=== PATIENT | female | born 1975 | race Caucasian/White ===

== ENCOUNTER 2018-05-06 02:47 | Emergency (ER) | payer OTHER, MEDICAID, SELFPAY ==
[2018-05-06 02:53] VITALS: BP 127/79; PULSE 107; RESP 14; TEMP 36.6; O2SAT 0
[2018-05-06 03:10] LABS: Appearance Urine UA SL CLOUDY; Bilirubin Urine UA NEGATIVE (NEGATIVE); Color Urine UA YELLOW; Glucose Urine UA NEGATIVE (Normal); Ketones Urine UA NEGATIVE (NEGATIVE); Leukocyte Esterase Urine UA 2+ (NEGATIVE); Nitrite Urine UA Negative (Negative); Occult Blood Urine UA TRACE-LYSED (Negative); Protein Urine UA 1+ (Negative); Specific Gravity Urine UA 1.025 (1.000-1.035); Urobilinogen Urine UA 0.2 E.U./dL (0.2)
[2018-05-06 03:19] LABS: RBC Urine 1-5/HPF (0-5/HPF)
[2018-05-06 03:20] LABS: Bacteria Urine Many (>30); Culture Indicated Urine Specimen Cultured; Squamous Epithelial Cell Urine 1-5 /HPF; WBC Urine 30-100/HPF (0-5/HPF)
--- NOTE | 2018-05-06 04:40 | ED.FEMALEGU ---
HPI - Female Genitourinary General Chief complaint: Urogenital-Female Stated complaint: hurts to pee, constantly peeing Time Seen by Provider: 05/06/18 04:40 Source: patient Mode of arrival: ambulatory Limitations: no limitations History of Present Illness Complaint: dysuria Onset (ago): hour(s) Location: perineum Severity: moderate Quality: Burning Relieving factors: none Exacerbating factors: urination Urinary symptoms: Dysuria and Frequency Vaginal discharge: other ( No) Patient : No Associated symptoms: denies other symptoms Related Data Previous Rx's Medication Instructions Recorded amoxicillin 875 mg-potassium 1 tab PO Q12H #14 tab 02/13/18 clavulanate 125 mg tablet ibuprofen 800 mg tablet 800 mg PO TIDP PRN #30 tab 02/13/18 sulfamethoxazole-trimethoprim 1 tab PO BID #14 tab 05/06/18 [Bactrim DS] Allergies Allergy/AdvReac Type Severity Reaction Status Date / Time hydrocodone [From VICODIN] Allergy Unknown Verified 02/13/18 13:10 Review of Systems Review of Systems All systems reviewed & are unremarkable except as noted in HPI and below Constitutional Denies chills, Denies fever(s), Denies lethargy and Denies weakness Eyes Denies change in vision, Denies eye discharge, Denies irritation and Denies loss of vision ENT Ears, Nose, Mouth, and Throat: Denies change in voice, Denies neck pain and Denies sore throat Cardiovascular Denies chest pain, Denies irregular heart rhythm, Denies lightheadedness, Denies palpitations, Denies dyspnea, Denies dyspnea on exertion and Denies orthopnea Respiratory Denies cough, Denies dyspnea, Denies dyspnea on exertion and Denies wheezing Gastrointestinal Gastrointestinal: Denies abdominal pain, Denies change in bowel habits, Denies diarrhea, Denies nausea and Denies vomiting Genitourinary Denies hematuria, Reports dysuria, Denies flank pain, Denies urinary incontinence and Reports urinary urgency Musculoskeletal Denies neck pain Integumentary/Breasts Denies pruritus, Denies erythema, Denies rash and Denies wounds Neurologic Denies confusion, Denies loss of vision and Denies weakness Psychiatric Denies anxiety, Denies confusion, Denies depression, Denies homicidal ideation and Denies suicidal ideation Endocrine Denies palpitations Hematologic/Lymphatic Denies easy bruising Allergic/Immunologic Denies wheezing [facility] Medical History ADHD (attention deficit hyperactivity disorder) (Chronic) Anxiety (Chronic) Autism (Chronic) Carpal tunnel syndrome (Chronic ~2006) Chronic back pain (Chronic ~1997) Heavy menstrual period (Chronic ~1987) Irregular menstrual cycle (Chronic ~1987) Painful menstrual periods (Chronic ~1987) Recurrent sinusitis (Chronic Unknown) Restless leg syndrome (Chronic) Substance abuse (Chronic) Acne (Resolved) Chickenpox (Resolved Unknown) Surgical History History of facial surgery (Resolved 07/2017) Hx of appendectomy (Resolved ~1984) Hx of tubal ligation (Resolved 2010) Family History Father Mental health problem Adopted child Alcoholic Mother Mental health problem Anxiety Fibromyalgia Grandfather Alcoholic Depression Mental health problem Grandmother Mental health problem Anxiety Depression Grandfather Stroke Myocardial infarction Mental health problem Alcoholic Adopted child Child molesting Grandmother Mental health problem Neuroticism Social History Smoking Status: Current every day smoker alcohol intake: never substance use type: does not use Exam Initial Vital Signs Initial Vital Signs: Vital Signs Temperature 97.9 F 05/06/18 02:53 Pulse Rate 107 H 05/06/18 02:53 Respiratory Rate 14 05/06/18 02:53 Blood Pressure 127/79 05/06/18 02:53 Pulse Oximetry 0 L 05/06/18 02:53 Const General: cooperative and well developed Nutritional Appearance: well nourished Orientation: alert, awake, oriented x3 and not confused [facility] Head: normocephalic and atraumatic Ears: external ears normal Nose: external nose normal and No nasal discharge Face and sinus: face symmetric and No dry mucous membranes Mouth: oral mucosae normal and moist mucous membranes Eyes General: appearance normal, both eyes and all related structures Eyelids: eyelids normal Conjunctivae: conjunctivae normal Sclera: sclerae normal Pupils: PERRL EOM: EOM intact bilaterally Neck Neck: normal visual inspection, trachea midline, No lymphadenopathy, No midline deformity and No JVD Lymphatic: No lymphedema Chest Chest: normal inspection of the chest Resp Effort & Inspection: normal respiratory effort, able to speak in complete sentences, no respiratory distress and no use of accessory muscles Auscultation: clear to auscultation bilaterally, no rales, no rhonchi and no wheezes Cardio Rate: regular rate Rhythm: regular rhythm Heart Sounds: no click, no gallops, no murmurs and no rubs Pulses: normal peripheral pulses GI Inspection: non-distended Palpation: soft, no hepatosplenomegaly, No guarding, No pulsatile mass and No tender Auscultation: normal bowel sounds Back/Spine/Pelvis Back: No CVA tenderness Cervical Spine: cervical ROM normal and No pain with cervical ROM Thoracic/Lumbar Spine: thoracic and lumbar spine normal to inspection Skin General: no rashes or lesions noted, No jaundice and No petechiae Neuro General: alert, oriented x3, gait normal and no focal motor deficits Speech: speech normal Extrem General: full ROM, no clubbing, cyanosis or edema, no pedal edema and no calf tenderness Psych Appearance: well kempt Mental Status: mental status grossly normal Attitude: cooperative Thought Content: normal and suicidality Judgment: judgment good Course Hospital Course: Patient was worked up and found to have a urinary tract infection. She was started on antibiotics and given a prescription for the same. The usual indications for return were discussed. Orders Ordered: Discontinued Medications Phenazopyridine HCl (Pyridium) 200 mg PO NOW ONE Stop: 05/06/18 05:07 Last Admin: 05/06/18 06:08 Dose: 200 mg Trimethoprim/Sulfamethoxazole (Bactrim Ds) 1 tab PO NOW ONE Stop: 05/06/18 05:07 Last Admin: 05/06/18 06:10 Dose: 1 tab Vital Signs - 8 hr 05/06/18 02:53 Temperature 97.9 F Pulse Rate 107 H Respiratory Rate 14 Blood Pressure 127/79 Pulse Oximetry 0 L MDM - Female Genitourinary Medical Records Attestation: I reviewed the patient's medical records. Lab Data Attestation: I reviewed the patient's lab results. Lab Results 05/06/18 Range/Units 03:00 Urine Color Yellow Urine Appearance Sl cloudy Urine pH 6.0 (4.5-8.0) Ur Specific [place] 1.025 (1.000-1.035) Urine Protein 1+ H (Negative) Urine Glucose (UA) Negative (Normal) g/dL Urine Ketones Negative (NEGATIVE) Urine Occult Blood Trace-lysed (Negative) Urine Nitrate Negative (Negative) Urine Bilirubin Negative (NEGATIVE) Urine Urobilinogen 0.2 (0.2) E.U./dL Ur Leukocyte Esterase 2+ H (NEGATIVE) Urine RBC 1-5/hpf (0-5/HPF) Urine WBC 30-100/hpf H (0-5/HPF) Ur Squamous Epith Cells 1-5 /hpf Urine Bacteria Many (>30) H (None) Ur Culture Indicated? Specimen cultured Micro UA Comment Not Reportable Discharge Plan Departure Patient Disposition: Home Clinical Impression: Urinary tract infection Discharge Date/Time: 05/06/18 06:14 Interventions: ED Discharge Assessment Last Done: 05/06/18 06:13 Instructions: DI for Urinary Tract Infection (UTI) Prescriptions: New sulfamethoxazole-trimethoprim [Bactrim DS] 800-160 mg tablet 1 tab PO BID Qty: 14 RF: 0 No Action amoxicillin-pot clavulanate 875-125 mg tablet 1 tab PO Q12H Qty: 14 RF: 0 ibuprofen 800 mg tablet 800 mg PO TIDP PRN (Reason: fever or pain) Qty: 30 RF: 0 Referrals: [facility] [Provider Group]
[2018-05-06 06:05] VITALS: BP 117/82; PULSE 91; O2SAT 98
[2018-05-06] MEDS: PHENAZOPYRIDINE 100 MG TABLET 200 MG PO (06:08)
[2018-05-06] MEDS: SULFA/TRIMETH 800/160 (DS) TABLET 1 TAB PO (06:10)
== END 2018-05-06 06:14 | disposition home or self-care (01) ==
PROVIDERS: Emergency Provider Emergency Medicine
DX: N39.0 Urinary tract infection, site not specified (principal)
CPT/HCPCS: 81001; 87077; 87086; 99282; 99283

== ENCOUNTER 2019-05-03 22:59 | Emergency (ER) | payer OTHER, MEDICAID, SELFPAY ==
[2019-05-03 23:02] VITALS: BP 140/99; PULSE 90; RESP 14; TEMP 36.7; O2SAT 95; BMI 23.3
--- NOTE | 2019-05-03 23:15 | ED.SKABFB ---
HPI - Skin/Abscess/Foreign Bdy General Chief complaint: Skin/Abscess/Foreign Body Stated complaint: FACE PAIN Time Seen by Provider: 05/03/19 23:05 Source: patient and family Mode of arrival: ambulatory Limitations: no limitations History of Present Illness HPI narrative: 44-year-old female former smoker presents with significant other and a chief complaint of left-sided facial pain with occasional intraoral drainage of foul tasting material. She states she has had this happen on occasion since she had a surgery to fix ?broken bones in my face ?a few years ago in [place]. She denies any systemic findings such as fever, shaking chills nor nausea or vomiting. She denies any facial swelling. She denies any tongue, lip or throat swelling or difficulty swallowing. On a side note the patient states that she on occasion gets numbness and tingling in her right arm in all of her fingers, most frequently after a long day of work, stating her symptoms improve after rest. Onset (ago): hour(s) Tetanus up to date: yes Location: face Severity: mild Quality: aching Pain Consistency: constant Relieving factors: none Exacerbating factors: none Context: none Associated symptoms: denies other symptoms Treatments prior to arrival: none Related Data Previous Rx's Medication Instructions Recorded ibuprofen 800 mg tablet 800 mg PO TIDP PRN #30 tab 02/13/18 prednisone 10 mg tablets in a dose 10 mg PO PER PKG DIR #21 each 05/26/18 pack amoxicillin-pot clavulanate 1 tab PO BID #20 tab 05/03/19 [Augmentin] ketorolac 10 mg PO Q6H PRN #14 tab 05/03/19 Allergies Allergy/AdvReac Type Severity Reaction Status Date / Time hydrocodone [From VICODIN] Allergy Unknown Verified 05/26/18 10:38 Review of Systems Constitutional Constitutional: Denies chills, Denies fatigue, Denies fever(s), Denies frequent falls, Denies lethargy and Denies weakness Eyes Eyes: Denies change in vision, Denies eye discharge, Denies irritation and Denies loss of vision ENT Ears, Nose, Mouth, and Throat: Denies change in voice, Denies dizziness, Reports facial pain, Denies neck pain, Denies sore throat and Denies throat swelling Cardiovascular Cardiovascular: Denies chest pain, Denies irregular heart rhythm, Denies lightheadedness, Denies palpitations, Denies dyspnea, Denies dyspnea on exertion and Denies orthopnea Respiratory Respiratory: Denies cough, Denies dyspnea, Denies dyspnea on exertion and Denies wheezing Gastrointestinal Gastrointestinal: Denies abdominal pain, Denies change in bowel habits, Denies diarrhea, Denies nausea and Denies vomiting Genitourinary Genitourinary: Denies hematuria, Denies flank pain, Denies urinary incontinence and Denies urinary urgency Musculoskeletal Musculoskeletal: Denies back pain, Denies muscle weakness, Denies neck pain, Denies numbness and Denies tingling Integumentary/Breasts Skin/Breast: Denies pruritus, Denies erythema, Denies rash and Denies wounds Neurologic Neurologic: Denies behavioral changes, Denies confusion, Denies dizziness, Denies frequent falls, Denies loss of vision, Denies numbness, Denies tingling and Denies weakness Psychiatric Psychiatric: Denies anxiety, Denies behavioral changes, Denies confusion, Denies depression, Denies homicidal ideation and Denies suicidal ideation Endocrine Endocrine: Denies fatigue, Denies flushing and Denies palpitations Hematologic/Lymphatic Hematologic/Lymphatic: Denies easy bruising Allergic/Immunologic Allergic/Immunologic: Denies urticaria, Denies throat swelling and Denies wheezing [facility] Medical History Acne (Resolved) ADHD (attention deficit hyperactivity disorder) (Chronic) Anxiety (Chronic) Autism (Chronic) Carpal tunnel syndrome (Chronic ~2006) Chickenpox (Resolved Unknown) Chronic back pain (Chronic ~1997) Heavy menstrual period (Chronic ~1987) Irregular menstrual cycle (Chronic ~1987) Painful menstrual periods (Chronic ~1987) Recurrent sinusitis (Chronic Unknown) Restless leg syndrome (Chronic) Substance abuse (Chronic) Surgical History History of facial surgery (Resolved 07/2017) Hx of appendectomy (Resolved ~1984) Hx of tubal ligation (Resolved 2010) Family History Father Mental health problem Adopted child Alcoholic Mother Mental health problem Anxiety Fibromyalgia Grandfather Alcoholic Depression Mental health problem Grandmother Mental health problem Anxiety Depression Grandfather Stroke Myocardial infarction Mental health problem Alcoholic Adopted child Child molesting Grandmother Mental health problem Neuroticism Social History Smoking Status: Current every day smoker alcohol intake: never substance use type: does not use Family History Father Mental health problem Adopted child Alcoholic Mother Mental health problem Anxiety Fibromyalgia Grandfather Alcoholic Depression Mental health problem Grandmother Mental health problem Anxiety Depression Grandfather Stroke Myocardial infarction Mental health problem Alcoholic Adopted child Child molesting Grandmother Mental health problem Neuroticism Social History Smoking Status: Current every day smoker alcohol intake: never substance use type: does not use Exam Narrative Exam Narrative: GEN: 44-year-old female appears stated age AOx3 and in mild distress, GCS 15. EYES: Pupils are equal, round, and reactive to light and accommodation. Extraoccular muscles are intact bilaterally. There is no subconjunctival hemorrhage or exudate. ENT: No obvious facial swelling or redness. No intraoral abscess or swelling. Firm pressure over L zygoma does NOT result in drainage in the mouth. CHEST: Lungs are clear to auscultation bilaterally and free of wheezes, rales, or rhonchi. Heart rate is regular rhythm, there are no murmurs, clicks, rubs, or gallops. There is no chest wall tenderness. ABD: Abdomen is soft and nontender. There is no guarding or rebound. Bowel sounds are normal in all 4 quadrants. There is no mass or organomegaly. EXT: Full painless ROM of all extremities with no loss of sensation or strength. No numbness or tingling with tinel's or reverse phalen's SKIN: Warm, pink, and dry. No erythema or rash Initial Vital Signs Initial Vital Signs: Vital Signs Temperature 98.0 F 05/03/19 23:02 Pulse Rate 90 05/03/19 23:02 Respiratory Rate 14 05/03/19 23:02 Blood Pressure 140/99 H 05/03/19 23:02 Pulse Oximetry 95 05/03/19 23:02 Course Orders Ordered: Discontinued Medications Amoxicillin/Clavulanate Potassium (Augmentin 875-125 Mg) 1 tab PO NOW ONE Stop: 05/03/19 23:28 Last Admin: 05/03/19 23:32 Dose: 1 tab Documented by: KEV Ketorolac Tromethamine (Toradol) 15 mg IM NOW ONE Stop: 05/03/19 23:28 Last Admin: 05/03/19 23:32 Dose: 15 mg Documented by: KEV Vital Signs Vital signs: Vital Signs - 8 hr 05/03/19 23:02 Temperature 98.0 F Pulse Rate 90 Respiratory Rate 14 Blood Pressure 140/99 H Pulse Oximetry 95 MDM - Skin/Abscess/Foreign Bdy MDM Narrative Medical decision making narrative: Patient reports facial pain, the perception of swelling, and intraoral drainage occasionally (currently) since a facial surgery a few years ago. There is no obvious external manifestation of this, nor intraoral, or ongoing drainage. We discussed labs and imaging versus treatment with antibiotics. Patient refuses any significant evaluation at this point time, stating she usually does just fine on antibiotics. We discussed risks and benefits of this. She has been given return precautions and had questions answered to her apparent satisfaction Discharge Plan Departure Patient Disposition: Home Clinical Impression: Acute facial pain, Odontogenic infection of jaw Discharge Date/Time: 05/03/19 23:47 Instructions: DI for Wound Infection Activity Restrictions/Additional Instructions: *You have been diagnosed with [facial pain and possible infection of prior surgical site] *What to do: *Take medications as directed: Your prescriptions have been electronically transmitted to [facility] at your request *Follow up with your primary care provider in 2-3 days, call for an appointment. Let them know you were seen in the Emergency Department and that we ask that you be seen in follow up *Return to ER if you should have any new, worsening or concerning symptoms Prescriptions: New amoxicillin-pot clavulanate [Augmentin] 875-125 mg tablet 1 tab PO BID Qty: 20 RF: 0 ketorolac 10 mg tablet 10 mg PO Q6H PRN (Reason: pain) Qty: 14 RF: 0 No Action ibuprofen 800 mg tablet 800 mg PO TIDP PRN (Reason: fever or pain) Qty: 30 RF: 0 prednisone 10 mg tablets,dose pack 10 mg PO PER PKG DIR Qty: 21 RF: 0 Referrals: Shola Cristina DMD [Physician] - Abdirizak De Jesus MD [Physician] -
[2019-05-03] MEDS: AMOXICILLIN/CLAV 875/125 MG 1 TAB PO (23:32)
[2019-05-03] MEDS: KETOROLAC 60 MG/2 ML VIAL 15 MG IM (23:32)
== END 2019-05-03 23:47 | disposition home or self-care (01) ==
LOC: ED 23:41
PROVIDERS: Emergency Provider Emergency Medicine
DX: R51 Headache (principal); M27.2 Inflammatory conditions of jaws
CPT/HCPCS: 96372; 99282; 99283; J1885

== ENCOUNTER 2021-01-30 04:45 | Emergency (ER) | payer OTHER, MEDICAID, SELFPAY ==
[2021-01-30 04:59] VITALS: BP 145/93; PULSE 123; RESP 20; TEMP 36.9; O2SAT 99; BMI 23.3
--- NOTE | 2021-01-30 05:15 | ED.ANIMALBIT ---
HPI - Animal Bite General Chief Complaint: Animal Bite Stated Complaint: cat bite to right arm cat has had shots Time Seen by Provider: 01/30/21 05:15 Source: patient Mode of arrival: Ambulatory Limitations: no limitations History of Present Illness HPI narrative: Patient is a 45-year-old female who presents with cat bite to right arm. She said her friend's cat bit her arm about 7:00 p.m. last evening. He she says the cat has all of its shots she is unsure on her tetanus shot she has no fever or chills worried it needs antibiotics. complaint: animal bite Onset (ago): hour(s) Animal: cat Description of animal: household pet Mechanism: bite Location - Extremities: Right: arm Related Data Previous Rx's Medication Instructions Recorded ibuprofen 800 mg tablet 800 mg PO TIDP PRN #30 tab 02/13/18 prednisone 10 mg tablets in a dose 10 mg PO PER PKG DIR #21 each 05/26/18 pack amoxicillin-pot clavulanate 1 tab PO BID #20 tab 05/03/19 [Augmentin] ketorolac 10 mg PO Q6H PRN #14 tab 05/03/19 amoxicillin-pot clavulanate 1 tab PO Q12H #14 tab 01/30/21 [Augmentin] Allergies Allergy/AdvReac Type Severity Reaction Status Date / Time hydrocodone [From VICODIN] Allergy Unknown Verified 05/26/18 10:38 Review of Systems Review of Systems Narrative: GENERAL: Denies chills,fever HEENT: Denies throat pain RESPIRATORY: Denies dyspnea, cough, wheezing CARDIOVASCULAR: Denies chest pain, palpitations GASTROINTESTINAL: Denies nausea, vomiting MUSCULOSKELETAL: Denies extremity pain, injury SKIN: See HPI NEUROLOGIC: Denies weakness, dizziness, headache, numbness 8 point review of systems is negative except for those stated above and HPI Patient History Medical History (Updated 01/30/21 @ 05:19 by Carmel Llanes DO) Acne ADHD (attention deficit hyperactivity disorder) Anxiety Autism Carpal tunnel syndrome (~2006) Chickenpox (Unknown) Chronic back pain (~1997) Heavy menstrual period (~1987) Irregular menstrual cycle (~1987) Painful menstrual periods (~1987) Recurrent sinusitis (Unknown) Restless leg syndrome Substance abuse Surgical History History of facial surgery (07/2017) Hx of appendectomy (~1984) Hx of tubal ligation (2010) Family History Father Mental health problem Adopted child Alcoholic Mother Mental health problem Anxiety Fibromyalgia Grandfather Alcoholic Depression Mental health problem Grandmother Mental health problem Anxiety Depression Grandfather Stroke Myocardial infarction Mental health problem Alcoholic Adopted child Child molesting Grandmother Mental health problem Neuroticism Social History Smoking Status: Current every day smoker alcohol intake: never substance use type: does not use Smoking Status: Current every day smoker alcohol intake frequency: a few times a week Substance Use Type: marijuana Exam Initial Vital Signs Initial Vital Signs: Vital Signs Temperature 98.4 F 01/30/21 04:59 Pulse Rate 123 H 01/30/21 04:59 Respiratory Rate 20 01/30/21 04:59 Blood Pressure 145/93 H 01/30/21 04:59 Pulse Oximetry 99 01/30/21 04:59 GENERAL: Well-appearing, well-nourished and in no acute distress. CARDIOVASCULAR: peripheral pulses in tact, cap refill <2 sec RESPIRATORY: No respiratory distress, speaks in full sentences without difficulty EXTREMITIES: Normal range of motion, no clubbing or edema. Neurovascularly intact NEUROLOGICAL: Cranial nerves II through XII grossly intact. Normal gait and speech. SKIN: Multiple puncture wounds in right forearm mild erythema no streaking Course Orders Ordered: Discontinued Medications Amoxicillin/Clavulanate Potassium (Amoxicillin/Clav 875/125 Mg) 1 tab PO NOW ONE Stop: 01/30/21 05:26 Last Admin: 01/30/21 05:33 Dose: 1 tab Documented by: ALEISHA Diphtheria/Tetanus/Acell Pertussis (Tet,Diph,Pertuss(Acell),Vac/Pf 0.5 Ml Syringe) 0.5 ml IM .ONCE ONE Stop: 01/30/21 05:22 Last Admin: 01/30/21 05:34 Dose: Not Given Documented by: ALEISHA Vital Signs Vital signs: Vital Signs - 8 hr 01/30/21 04:59 01/30/21 05:37 Temperature 98.4 F Pulse Rate 123 H 100 H Respiratory Rate 20 16 Blood Pressure 145/93 H 140/71 Pulse Oximetry 99 100 Discharge Plan Departure Patient Disposition: Home Clinical Impression: Cat bite Instructions: DI for Cat Bite Activity Restrictions/Additional Instructions: *You have been diagnosed with will bite *What to do: Monitor arm for redness *Continue to take medications as directed Augment 875 mg twice a day for 7 days sent to [facility] in [place] *Follow up with your primary care provider in 2-3 days *Return to ER if you should have increasing redness, streaking, pain or any new, worsening or concerning symptoms Prescriptions: New amoxicillin-pot clavulanate [Augmentin] 875-125 mg tablet 1 tab PO Q12H Qty: 14 RF: 0 No Action ibuprofen 800 mg tablet 800 mg PO TIDP PRN (Reason: fever or pain) Qty: 30 RF: 0 prednisone 10 mg tablets,dose pack 10 mg PO PER PKG DIR Qty: 21 RF: 0 amoxicillin-pot clavulanate [Augmentin] 875-125 mg tablet 1 tab PO BID Qty: 20 RF: 0 ketorolac 10 mg tablet 10 mg PO Q6H PRN (Reason: pain) Qty: 14 RF: 0
[2021-01-30] MEDS: AMOXICILLIN/CLAV 875/125 MG 1 TAB PO (05:33)
--- NOTE | 2021-01-30 05:34 | PC.NURSE ---
Patient refused tetanus shot; states she got one within 5years from when she went to [facility] and needed surgery and states she got one then; Her partner and patient agree to double check that that's accurate and promise to go get a tetanus shot if it was not within that 5yr range
[2021-01-30 05:37] VITALS: BP 140/71; PULSE 100; RESP 16; O2SAT 100
== END 2021-01-30 05:37 | disposition home or self-care (01) ==
PROVIDERS: Emergency Provider Emergency Medicine
DX: S41.151A Open bite of right upper arm, initial encounter (principal); W55.01XA Bitten by cat, initial encounter
CPT/HCPCS: 99283

== ENCOUNTER 2022-02-07 11:31 | Emergency (ER) | payer OTHER, MEDICAID, SELFPAY ==
[2022-02-07 11:32] VITALS: BP 126/89; PULSE 98; RESP 16; TEMP 36.6; O2SAT 100; BMI 24.1
--- NOTE | 2022-02-07 12:24 | ED.EXTPRO ---
HPI - Extremity Problem <Gabriel Hawk PA-C - Last Filed: 02/07/22 19:35> General Chief complaint: Extremity Problem,Nontraumatic Stated complaint: Pain in right arm Time Seen by Provider: 02/07/22 12:06 Source: patient Mode of arrival: Ambulatory History of Present Illness HPI Narrative: Patient is a 46-year-old female who presents to the emergency department for evaluation right arm pain. Patient states she has been experiencing pain in her right upper extremity for the past 3 or 4 years, stating that she fractured the right elbow approximately 7 years ago. She explains that she frequently experiences decreased sensation in right upper extremity and pain with movement that often times causes her to miss work. Of note, she denies any recent trauma or injury to the area that could explain her symptoms. She denies fever, chills, chest pain, cough, shortness of breath, nausea, vomiting, diarrhea, constipation, abdominal pain, dysuria, hematuria, or any other concerning symptoms. No further concerns were voiced at this time. Related Data Previous Rx's Medication Instructions Recorded ibuprofen 800 mg tablet 800 mg PO TIDP PRN fever or pain 02/13/18 #30 tabs prednisone 10 mg tablets in a dose 10 mg PO PER PKG DIR #21 ea 05/26/18 pack amoxicillin 875 mg-potassium 1 tab PO BID #20 tabs 05/03/19 clavulanate 125 mg tablet (Augmentin) ketorolac 10 mg tablet 10 mg PO Q6H PRN pain #14 tabs 05/03/19 amoxicillin 875 mg-potassium 1 tab PO Q12H #14 tabs 01/30/21 clavulanate 125 mg tablet (Augmentin) gabapentin 300 mg capsule 300 mg PO BEDTIME #20 caps 02/07/22 Allergies Allergy/AdvReac Type Severity Reaction Status Date / Time hydrocodone [From VICODIN] Allergy Unknown Verified 02/07/22 11:38 acetaminophen [From Percocet] Allergy Verified 02/07/22 11:38 oxycodone [From Percocet] Allergy Verified 02/07/22 11:38 Review of Systems <Gabriel Hawk PA-C - Last Filed: 02/07/22 19:35> Review of Systems Narrative: GENERAL: Denies chills,fever HEENT: Denies throat pain RESPIRATORY: Denies dyspnea, cough, wheezing CARDIOVASCULAR: Denies chest pain, palpitations GASTROINTESTINAL: Denies nausea, vomiting MUSCULOSKELETAL: Pain and numbness in the right upper extremity extending from the shoulder to the elbow. SKIN: See HPI NEUROLOGIC: Denies weakness, dizziness, headache, numbness 8 point review of systems is negative except for those stated above and HPI Patient History <Gabriel Hawk PA-C - Last Filed: 02/07/22 19:35> Medical History (Updated 02/07/22 @ 12:31 by Gabriel Hawk PA-C) Acne ADHD (attention deficit hyperactivity disorder) Anxiety Autism Carpal tunnel syndrome (~2006) Chickenpox (Unknown) Chronic back pain (~1997) Heavy menstrual period (~1987) Irregular menstrual cycle (~1987) Painful menstrual periods (~1987) Recurrent sinusitis (Unknown) Restless leg syndrome Substance abuse Surgical History History of facial surgery (07/2017) Hx of appendectomy (~1984) Hx of tubal ligation (2010) Family History Father Mental health problem Adopted child Alcoholic Mother Mental health problem Anxiety Fibromyalgia Grandfather Alcoholic Depression Mental health problem Grandmother Mental health problem Anxiety Depression Grandfather Stroke Myocardial infarction Mental health problem Alcoholic Adopted child Child molesting Grandmother Mental health problem Neuroticism Social History Smoking Status: Current every day smoker alcohol intake: never substance use type: does not use Smoking Status: Current every day smoker alcohol intake frequency: a few times a week Substance Use Type: marijuana Exam <Gabriel Hawk PA-C - Last Filed: 02/07/22 19:35> Narrative Exam Narrative: GENERAL: 46 year old patient appears stated age. Well-developed patient, in no acute distress. HEAD: Atraumatic. Normocephalic. EYES: Pupils equal round and reactive. Extraocular motions intact. No scleral icterus. No injection or drainage. ENT: Nose without bleeding, purulent drainage. Throat without erythema, tonsillar hypertrophy or exudate. Airway patent. NECK: Trachea midline. Non tender CARDIOVASCULAR: Regular rate and rhythm without murmurs, gallops, or rubs. RESPIRATORY: Clear to auscultation. Breath sounds equal bilaterally. No wheezes, rales, or rhonchi. GASTROINTESTINAL: Abdomen soft, non-tender, nondistended. EXTREMITIES: No edema or joint tenderness. Slightly decreased sensation to light touch appreciated throughout the right upper extremity. Gross motor function intact throughout the bilateral upper extremities. No gross deformity appreciated. BACK: Nontender without deformity or crepitance. No flank tenderness. NEURO: AOx3. SKIN: No rash or erythema of visible areas Initial Vital Signs Initial Vital Signs: Vital Signs Temperature 97.9 F 02/07/22 11:32 Pulse Rate 98 H 02/07/22 11:32 Respiratory Rate 16 02/07/22 11:32 Blood Pressure 126/89 02/07/22 11:32 Pulse Oximetry 100 02/07/22 11:32 Oxygen Delivery Method 02/07/22 11:32 <Carmel Llanes DO - Last Filed: 02/08/22 07:24> Initial Vital Signs Initial Vital Signs: Vital Signs Temperature 97.9 F 02/07/22 11:32 Pulse Rate 98 H 02/07/22 11:32 Respiratory Rate 16 02/07/22 11:32 Blood Pressure 126/89 02/07/22 11:32 Pulse Oximetry 100 02/07/22 11:32 Oxygen Delivery Method 02/07/22 11:32 Course <Gabriel Hawk PA-C - Last Filed: 02/07/22 19:35> Course Course Narrative: Patient provided gabapentin tablet here in the emergency department with prescription sent to preferred pharmacy. Discussed plan to provide orthopedic referral for patient. Orders Ordered: Discontinued Medications Gabapentin (Gabapentin 300 Mg Capsule) 300 mg PO NOW ONE Stop: 02/07/22 12:29 Last Admin: 02/07/22 12:44 Dose: 300 mg Documented By: AT Vital Signs Vital signs: Vital Signs - 8 hr 02/07/22 11:32 Temperature 97.9 F Pulse Rate 98 H Respiratory Rate 16 Blood Pressure 126/89 Pulse Oximetry 100 Oxygen Delivery Method Room Air <Carmel Llanes DO - Last Filed: 02/08/22 07:24> Orders Ordered: Discontinued Medications Gabapentin (Gabapentin 300 Mg Capsule) 300 mg PO NOW ONE Stop: 02/07/22 12:29 Last Admin: 02/07/22 12:44 Dose: 300 mg Documented By: AT Vital Signs Vital signs: Vital Signs - 8 hr 02/07/22 11:32 Temperature 97.9 F Pulse Rate 98 H Respiratory Rate 16 Blood Pressure 126/89 Pulse Oximetry 100 Oxygen Delivery Method Room Air MDM - Extremity (Nontraumatic) <Gabriel Hawk PA-C - Last Filed: 02/07/22 19:35> MDM Narrative Medical decision making narrative: Differential diagnosis to consider but not limited to fracture versus dislocation versus sprain versus strain versus impingement syndrome versus radiculopathy. Physical exam findings within normal limits, no signs of deformity or recent injury noted to the bilateral upper extremities. Discussed plan with patient to provide her with a course of gabapentin to see if this would help alleviate her symptoms. Additionally, I discussed plan to have the patient follow-up with orthopedics for further evaluation and management. Patient expresses understanding and agrees to plan. Strict return precautions were discussed prior to discharge. Discharge Plan Departure Patient Disposition: Home Clinical Impression: Arm pain, right Instructions: DI for Arm Pain Activity Restrictions/Additional Instructions: *You have been diagnosed with right arm pain *What to do: *Please continue to take your regular medications as directed. [X] New medication prescriptions sent to your pharmacy: Gabapentin -[facility] [ ] New medication written as a paper prescription [ ] No new medications given You were evaluated in the emergency department today for right arm pain. A course of gabapentin has been sent to your preferred pharmacy, please ensure the take this at nighttime before bed. I have set up a referral for orthopedic follow-up. Their office should be reaching out to you to schedule an appointment. Please follow-up with primary care for further evaluation and management. Please do not hesitate to return to the emergency department if you experience worsening pain, complete loss of sensation in the right upper extremity, fever, or any other concerning symptoms. *Please follow up with your primary care provider in 2-3 days, call for an appointment. Let them know you were seen in the Emergency Department and that we ask that you be seen in follow up. We will electronically transmit a record of today's note if your PCP is in our system *If you do not have a primary care provider please contact the [facility] Resource line at [phone]. They will ask some questions about your medical history and help get you set up with a doctor in the community. *Return to Emergency Department if you should have any new, worsening or concerning symptoms, such as fever greater than 101 F, shaking chills, worsening pain, persistent vomiting or other bothersome symptoms. Prescriptions: New gabapentin 300 mg capsule 300 mg PO BEDTIME Qty: 20 0RF No Action ibuprofen 800 mg tablet 800 mg PO TIDP PRN (Reason: fever or pain) Qty: 30 0RF prednisone 10 mg tablets,dose pack 10 mg PO PER PKG DIR Qty: 21 0RF amoxicillin-pot clavulanate [Augmentin] 875-125 mg tablet 1 tab PO Q12H Qty: 14 0RF amoxicillin-pot clavulanate [Augmentin] 875-125 mg tablet 1 tab PO BID Qty: 20 0RF ketorolac 10 mg tablet 10 mg PO Q6H PRN (Reason: pain) Qty: 14 0RF Referrals: Dieter Jensen MD [Physician] - 7-10 days Visit Report Forms: Patient Portal/API <Carmel Llanes DO - Last Filed: 02/08/22 07:24> Cosign ED Attending Cosmikaelaature Attestation: I was immediately available in the department for consultation. Documentation has been reviewed. I agree with assessment and plan.
[2022-02-07] MEDS: GABAPENTIN 300 MG CAPSULE PO (12:44)
== END 2022-02-07 12:50 | disposition home or self-care (01) ==
PROVIDERS: Emergency Provider Physician Assistant
DX: M79.601 Pain in right arm (principal); Z87.81 Personal history of (healed) traumatic fracture
CPT/HCPCS: 99283

== ENCOUNTER 2023-06-01 14:52 | Emergency (ER) | payer OTHER, MEDICAID, SELFPAY ==
[2023-06-01 14:55] VITALS: BP 145/72; PULSE 110; RESP 18; TEMP 37.1; O2SAT 100
--- NOTE | 2023-06-01 15:13 | DI.CT.S_ITS ---
PROCEDURE: CT FACIAL BONES WO CON INDICATIONS: facial injury right cheek TECHNIQUE: Noncontrast 2.5 mm thick axial images acquired from the mandible through the frontal sinuses, with coronal and sagittal reformatting. For radiation dose reduction, the following was used: automated exposure control, adjustment of mA and/or kV according to patient size. COMPARISON: [facility], [place], FACIAL BONES WITHOUT CONTRAST, 04/08/2017, 12:27. FINDINGS: Image quality: Excellent. Bones and teeth: Orbital grossman are intact. Prior ORIF of the left maxillary sinus anterior wall and posttraumatic changes of the left maxillary sinus. Comminuted and displaced fracture of the right anterior maxillary sinus wall with approximately 10 mm of depression of fracture fragments into the maxillary sinus is. Nasal bones and septum are intact. Visualized portions of the mandible demonstrate no fractures or subluxation. Zygomatic arches are intact. Pterygoid plates are intact. Visualized portions of the skull base and auditory canals are intact. Poor dentition with multiple caries and periapical lucencies within the residual teeth. Sinuses: Small blood within the right maxillary sinus. Complete opacification of the left maxillary sinus and partial opacification of the left ethmoid air cells. Mastoid air cells are aerated. Soft tissues: Subcutaneous stranding over the right maxilla with few hyperdense foci which may represent foreign bodies. No enlarged lymph nodes. No soft tissue lacerations or debris. Vascular: Visualized vascular structures appear normal in the absence of contrast. Bony vascular foramina and canals are intact. IMPRESSION: 1. Acute comminuted and displaced fracture of the right maxillary sinus anterior wall. Small blood within the right maxillary sinus. There is overlying subcutaneous stranding with small radiopaque densities, may represent foreign bodies. 2. Near complete opacification of the left maxillary sinus and partial opacification of left ethmoid air cells, consistent with chronic sinusitis. Hyperostosis of the maxillary sinus grossman. 3. Posttraumatic changes still left maxillary sinus with ORIF of the anterior wall. 4. Poor dentition with multiple caries and periapical lucencies within the remaining mandibular teeth. Dictated by: Yandel Hill M.D. on 06/01/2023 at 16:50 Approved by: Yandel Hill M.D. on 06/01/2023 at 16:57
--- NOTE | 2023-06-01 17:01 | ED.HEATRA ---
HPI - Head Injury General Chief complaint: Head Injury Stated complaint: Facial injury picking apples Time Seen by Provider: 06/01/23 15:23 Source: patient Mode of arrival: Ambulatory History of Present Illness HPI Narrative: 48-year-old female presents by private vehicle for right-sided facial injury that occurred 2 days prior. Patient was picking apples when a heavy piece of equipment smashed her in the face. Denies loss of consciousness, denies use of blood thinners. Patient initially presented to the would be ER, however the wait was too long and she left prior to imaging being obtained. Patient has previous history of ORIF of sinus on the left-hand side, she states that this feels similar to when she broke her sinus several years ago Related Data Previous Rx's Medication Instructions Recorded ibuprofen 800 mg tablet 800 mg PO TIDP PRN fever or pain 02/13/18 #30 tabs prednisone 10 mg tablets in a dose 10 mg PO PER PKG DIR #21 ea 05/26/18 pack amoxicillin 875 mg-potassium 1 tab PO BID #20 tabs 05/03/19 clavulanate 125 mg tablet (Augmentin) ketorolac 10 mg tablet 10 mg PO Q6H PRN pain #14 tabs 05/03/19 amoxicillin 875 mg-potassium 1 tab PO Q12H #14 tabs 01/30/21 clavulanate 125 mg tablet (Augmentin) gabapentin 300 mg capsule 300 mg PO BEDTIME #20 caps 02/07/22 amoxicillin 875 mg-potassium 1 tab PO Q12H #20 tabs 06/01/23 clavulanate 125 mg tablet hydrocodone 5 mg-acetaminophen 325 1 tab PO Q8H PRN pain #10 tabs 06/01/23 mg tablet Allergies Allergy/AdvReac Type Severity Reaction Status Date / Time hydrocodone [From VICODIN] Allergy Unknown Verified 02/07/22 11:38 acetaminophen [From Percocet] Allergy Verified 02/07/22 11:38 oxycodone [From Percocet] Allergy Verified 02/07/22 11:38 Review of Systems Review of Systems Narrative: CONSTITUTIONAL- Denies: fever, chills, fatigue HEENT-reports: Right-sided facial pain Denies: sore throat, nosebleed, vision changes RESPIRATORY- Denies: shortness of breath, cough, wheezing CARDIAC- Denies: chest pain, edema, orthopnea NEUROLOGICAL- Denies: headache, numbness, weakness, dizziness PSYCHIATRIC- Denies: anxiety, depression, suicidal ideation, homicidal ideation Patient History Medical History (Updated 06/01/23 @ 17:18 by Nora Rubio MD) Acne Anxiety Restless leg syndrome Substance abuse ADHD (attention deficit hyperactivity disorder) Carpal tunnel syndrome (~2006) Chronic back pain (~1997) Chickenpox (Unknown) Recurrent sinusitis (Unknown) Heavy menstrual period (~1987) Irregular menstrual cycle (~1987) Painful menstrual periods (~1987) Autism Surgical History History of facial surgery (07/2017) Hx of appendectomy (~1984) Hx of tubal ligation (2010) Family History Father Mental health problem Adopted child Alcoholic Mother Mental health problem Anxiety Fibromyalgia Grandfather Alcoholic Depression Mental health problem Grandmother Mental health problem Anxiety Depression Grandfather Stroke Myocardial infarction Mental health problem Alcoholic Adopted child Child molesting Grandmother Mental health problem Neuroticism Social History Smoking Status: Current every day smoker alcohol intake: never substance use type: does not use Smoking Status: Current every day smoker tobacco type: cigarettes alcohol intake frequency: a few times a week Substance Use Type: marijuana Exam Initial Vital Signs Initial Vital Signs: Vital Signs Temperature 98.7 F 06/01/23 14:55 Pulse Rate 110 H 06/01/23 14:55 Respiratory Rate 18 06/01/23 14:55 Blood Pressure 145/72 H 06/01/23 14:55 Pulse Oximetry 100 06/01/23 14:55 Oxygen Delivery Method Room Air 06/01/23 14:55 Const: Awake, alert, no acute distress, nontoxic appearing Eyes: PERRL, EOMI, conjunctiva normal ENT: abrasion R cheek, no nasal septal hematoma Cardiac: regular rate, regular rhythm RESP: unlabored, clear bilaterally, no wheezing Skin: Warm, Dry, intact, no rashes Neuro: AO x3, CN II-XII grossly intact, moves all extremities Psych: affect normal, mood normal, not suicidal, not homicidal Course Orders Ordered: Discontinued Medications Ibuprofen (Ibuprofen 400 Mg Tablet) 400 mg PO NOW ONE Stop: 06/01/23 17:22 Last Admin: 06/01/23 17:31 Dose: 400 mg Documented By: RB Vital Signs Vital signs: Vital Signs - 8 hr 06/01/23 14:55 Temperature 98.7 F Pulse Rate 110 H Respiratory Rate 18 Blood Pressure 145/72 H Pulse Oximetry 100 Oxygen Delivery Method Room Air MDM - Head Injury MDM Narrative Medical decision making narrative: Facial trauma after being struck in face with heavy metal object. Comminuted fracture of anterior maxillary sinus. Discussed case with on-call ENT Dr. Strong, who stated that patient could be followed outpatient to determine necessity for surgery. Patient advised of imaging results. We will discharge on Augmentin since sinuses involved. Pain medications sent to pharmacy. referral to ENT provided. ED return precautions discussed at bedside. Patient expressed understanding of the plan and is in agreement at this time. All questions answered at the time of discharge. Discharge Plan Departure Patient Disposition: Home Clinical Impression: Fracture of maxillary sinus Instructions: Skull and Facial Fracture Prescriptions: New amoxicillin-pot clavulanate 875-125 mg tablet 1 tab PO Q12H Qty: 20 0RF hydrocodone-acetaminophen 5-325 mg tablet 1 tab PO Q8H PRN (Reason: pain) Qty: 10 0RF No Action ibuprofen 800 mg tablet 800 mg PO TIDP PRN (Reason: fever or pain) Qty: 30 0RF prednisone 10 mg tablets,dose pack 10 mg PO PER PKG DIR Qty: 21 0RF amoxicillin-pot clavulanate [Augmentin] 875-125 mg tablet 1 tab PO Q12H Qty: 14 0RF amoxicillin-pot clavulanate [Augmentin] 875-125 mg tablet 1 tab PO BID Qty: 20 0RF ketorolac 10 mg tablet 10 mg PO Q6H PRN (Reason: pain) Qty: 14 0RF gabapentin 300 mg capsule 300 mg PO BEDTIME Qty: 20 0RF Referrals: Steve Strong MD [Physician] - Stand Alone Forms: Patient Portal/API
[2023-06-01] MEDS: IBUPROFEN 400 MG TABLET PO (17:31)
[2023-06-01 17:32] VITALS: BP 136/72; PULSE 85; RESP 16; TEMP 36.8; O2SAT 97
== END 2023-06-01 17:34 | disposition home or self-care (01) ==
PROVIDERS: Emergency Provider Emergency Medicine
DX: S02.401A Maxillary fracture, unspecified side, initial encounter for closed fracture (principal); W22.8XXA Striking against or struck by other objects, initial encounter
CPT/HCPCS: 70486; 99283; 99284

== ENCOUNTER 2025-07-19 17:25 | Emergency (ER) | payer OTHER, MEDICAID, SELFPAY ==
[2025-07-19] VITALS (7 sets, daily range): BP systolic 115–146; BP diastolic 74–90; PULSE 85–102; RESP 18; TEMP 37.3; O2SAT 99–100; BMI 26.1
[2025-07-19 18:16] LABS: Add Manual Diff / Slide Review NO; Hematocrit 35.0 % (36-46); Hemoglobin 11.3 g/dL (12.0-16.0); Lymphocytes Absolute Auto 1600 /uL (1100-4500); Mean Corpuscular HGB Conc 32.2 % (30-36); Mean Corpuscular Hemoglobin 23.4 PG (26-34); Mean Corpuscular Volume 72.8 fL (80-100); Platelet Count 430 X10^3/uL (150-400)
[2025-07-19 18:31] LABS: Alanine Aminotransferase 12 IU/L (<35); Albumin 4.7 g/dL (3.5-5.0); Albumin Globulin Ratio 1.5 (1.0-2.8); Alkaline Phosphatase 70 U/L (38-126); Blood Urea Nitrogen 16 mg/dL (7-17); Calcium 9.1 mg/dL (8.4-10.2); Carbon Dioxide 24 mmol/L (22-32); Chloride 105 mmol/L (98-107); Estimated Glomerular Filt Rate > 60 mL/min (>60); Globulin 3.1 g/dL (1.7-4.1); Glucose 108 mg/dL (70-99); HEMOLYSIS < 15 (0-50); Potassium 3.8 mmol/L (3.4-5.1); Sodium 140 mmol/L (137-145); Total Protein 7.8 g/dL (6.3-8.2)
[2025-07-19 20:30] LABS: Culture Indicated Urine Cult Not Indicated
--- NOTE | 2025-07-19 21:14 | ED.FEMALEGU ---
HPI - Female Genitourinary General Chief complaint: Vaginal Bleeding Stated complaint: Vaginal bleeding x 1mo Time Seen by Provider: 07/19/25 19:31 Source: patient, RN notes reviewed and old records reviewed Mode of arrival: Ambulatory Limitations: no limitations History of Present Illness HPI Narrative: 50-year-old female history of tobacco use with a complaint of vaginal bleeding x1 month. Patient states for the last several years she has had very heavy irregular periods. Previously she would have proximally 7 days of bleeding without any bleeding. She had 1 period of 12 months for she was having daily bleeding and spotting. This improved for about 3 or 4 months and then returned for the past month with persistent bleeding. She states she has felt a little lightheaded particularly when she does not have anything to eat or drink but denies any syncope. No chest pain, no shortness of breath. She denies any nausea or vomiting. No issues with bowel movements or urination. She notes that she goes through a pad or tampon every 2 hours. She states she does not have any cramping or pain. She states she has had Pap smears and biopsies in the past but does not think she has ever had an endometrial biopsy although she is unsure. She states she has had pelvic ultrasounds when she was but not any time recently. She denies daily medications, she has had appendectomy. Does use tobacco daily, occasional alcohol, marijuana but no other recreational drugs. Related Data Previous Rx's ?Medication ?Instructions ?Recorded ibuprofen 800 mg tablet 800 mg PO TIDP PRN fever or pain 02/13/18 #30 tabs prednisone 10 mg tablets in a dose 10 mg PO PER PKG DIR #21 ea 05/26/18 pack amoxicillin 875 mg-potassium 1 tab PO BID #20 tabs 05/03/19 clavulanate 125 mg tablet (Augmentin) ketorolac 10 mg tablet 10 mg PO Q6H PRN pain #14 tabs 05/03/19 amoxicillin 875 mg-potassium 1 tab PO Q12H #14 tabs 01/30/21 clavulanate 125 mg tablet (Augmentin) gabapentin 300 mg capsule 300 mg PO BEDTIME #20 caps 02/07/22 amoxicillin 875 mg-potassium 1 tab PO Q12H #20 tabs 06/01/23 clavulanate 125 mg tablet hydrocodone 5 mg-acetaminophen 325 1 tab PO Q8H PRN pain #10 tabs 06/01/23 mg tablet Allergies Allergy/AdvReac Type Severity Reaction Status Date / Time hydrocodone (From VICODIN) Allergy Unknown Verified 02/07/22 11:38 acetaminophen (From Percocet) Allergy Verified 02/07/22 11:38 oxycodone (From Percocet) Allergy Verified 02/07/22 11:38 Review of Systems Review of Systems ROS Unobtainable: All systems reviewed & are unremarkable except as noted in HPI and below Patient History Medical History (Updated 07/19/25 @ 21:31 by Nora Gomez DO) Acne Anxiety Restless leg syndrome Substance abuse ADHD (attention deficit hyperactivity disorder) Carpal tunnel syndrome (~2006) Chronic back pain (~1997) Chickenpox (Unknown) Recurrent sinusitis (Unknown) Heavy menstrual period (~1987) Irregular menstrual cycle (~1987) Painful menstrual periods (~1987) Autism Surgical History History of facial surgery (07/2017) Hx of appendectomy (~1984) Hx of tubal ligation (2010) Family History Father Mental health problem Adopted child Alcoholic Mother Mental health problem Anxiety Fibromyalgia Grandfather Alcoholic Depression Mental health problem Grandmother Mental health problem Anxiety Depression Grandfather Stroke Myocardial infarction Mental health problem Alcoholic Adopted child Child molesting Grandmother Mental health problem Neuroticism tobacco type: cigarettes Last Alcoholic Drink: does not use Exam Narrative Exam Narrative: GENERAL: Alert and oriented x three, female in mild distress HEENT: Head normocephalic, atraumatic, EOMI, pupils reactive, face symmetric, moist mucous membranes NECK: Supple, full range of motion CARDIOVASCULAR: Regular rate and rhythm without murmurs, rubs or gallops. RESPIRATORY: Breath sounds equal bilaterally, no wheezes rales or rhonchi. ABDOMEN: Soft, nontender. Nondistended. Normoactive bowel sounds all 4 quadrants. No guarding or rebound, rigidity, no mass : No CVA tenderness EXTREMITIES: Normal range of motion, no clubbing or edema. Neurovascularly intact NEUROLOGICAL: Cranial nerves II through XII grossly intact. Moving all extremities SKIN: Warm, dry, no petechiae, no rashes or lesions. Initial Vital Signs Initial Vital Signs: Vital Signs Temperature 99.2 F 07/19/25 17:29 Pulse Rate 102 H 07/19/25 17:29 Respiratory Rate 18 07/19/25 17:29 Blood Pressure 129/74 07/19/25 17:29 Pulse Oximetry 100 07/19/25 17:29 Oxygen Delivery Method Room Air 07/19/25 17:29 Course Orders Ordered: ED Orders 07/19/25 17:50 CBC Auto Diff [Complete Blood Count AUTO DIFF] Stat CMP [Comprehensive Metabolic Panel] Stat 07/19/25 19:50 Urine Microscopic Stat Vital Signs Vital signs: Vital Signs - 8 hr 07/19/25 17:29 07/19/25 19:34 07/19/25 21:06 Temperature 99.2 F Pulse Rate 102 H 94 H 98 H Respiratory Rate 18 18 Blood Pressure 129/74 115/75 Pulse Oximetry 100 99 100 Oxygen Delivery Method Room Air Room Air 07/19/25 21:07 07/19/25 21:07 07/19/25 21:15 Temperature Pulse Rate 102 H 89 Respiratory Rate Blood Pressure 146/85 H Pulse Oximetry 100 100 Oxygen Delivery Method Room Air 07/19/25 21:15 07/19/25 21:30 07/19/25 21:42 Temperature Pulse Rate 85 Respiratory Rate Blood Pressure 128/75 135/90 Pulse Oximetry 99 Oxygen Delivery Method 07/19/25 21:42 Temperature Pulse Rate 94 H Respiratory Rate Blood Pressure Pulse Oximetry 99 Oxygen Delivery Method MDM - Female Genitourinary Lab Data 07/19/25 17:50 07/19/25 17:50 Labs: Lab Results 07/19/25 07/19/25 Range/Units 17:50 19:50 WBC 5.9 (4.5-11.0) X10^3/uL RBC 4.81 (4.0-5.2) X10^6/uL Hgb 11.3 L (12.0-16.0) g/dL Hct 35.0 L (36-46) % MCV 72.8 L (80-100) fL MCH 23.4 L (26-34) PG MCHC 32.2 (30-36) % RDW 17.3 H (11.6-14.8) % Plt Count 430 H (150-400) X10^3/uL Neut % (Auto) 62.9 (50-75) % Lymph % (Auto) 26.5 (25-40) % [place] % (Auto) 6.1 (3-14) % Eos % (Auto) 3.4 (2-4) % Baso % (Auto) 1.1 (0-2) % Neut # (Auto) 3700 (1521-4364) /uL Lymph # (Auto) 1600 (4310-0253) /uL [place] # (Auto) 400 (0-900) /uL Eos # (Auto) 200 (0-450) /uL Baso # (Auto) 100 (0-100) /uL Sodium 140 (137-145) mmol/L Potassium 3.8 (3.4-5.1) mmol/L Chloride 105 (98-107) mmol/L Carbon Dioxide 24 (22-32) mmol/L BUN 16 (7-17) mg/dL Creatinine 0.59 (0.52-1.04) mg/dL Estimated GFR > 60 (>60) mL/min BUN/Creatinine Ratio 27.1 H (6-22) Glucose 108 H (70-99) mg/dL Calcium 9.1 (8.4-10.2) mg/dL Total Bilirubin 0.8 (0.2-1.3) mg/dL AST 24 (14-36) IU/L ALT 12 (<35) IU/L Alkaline Phosphatase 70 (38-126) U/L Total Protein 7.8 (6.3-8.2) g/dL Albumin 4.7 (3.5-5.0) g/dL Globulin 3.1 (1.7-4.1) g/dL Albumin/Globulin Ratio 1.5 (1.0-2.8) Urine RBC None seen (0-5/HPF) Urine WBC None seen (0-5/HPF) Ur Squamous Epith Cells None seen (0-5/HPF) Urine Bacteria None seen (None) Ur Culture Indicated? Cult not indicated Vol Urine Centrifuged 10ml (spun) Point of Care Testing Test Results Negative Urine Dip Bedside Urine Glucose Negative Bedside Urine Bilirubin - Negative Bedside Urine Ketone - Negative Urine Specific Lottie 1.020 Bedside Urine Occult Blood ++ Bedside Urine pH 6.0 Bedside Urine Protein - Negative Bedside Urine Urobilinogen - Negative Bedside Urine Nitrite - Negative Bedside Urine Leukocytes - Negative Esterase MDM Narrative Medical decision making narrative: Labs show white count of 5.9 hemoglobin 11.3 microcytic, platelets of 430. Electrolytes BUN and creatinine are appropriate glucose is 108, LFTs are negative. Point of care urine shows blood, no nitrates or leuks, no RBCs no white cells, no squamous no bacteria. Point of care is negative 50-year-old female with persistent vaginal bleeding, patient noted at 1 point she had proximally 12 months of bleeding she had some improvement for a couple months and then started having bleeding again. She is anemic with a hemoglobin 11.3 some slight tachycardia but otherwise hemodynamically stable. We discussed or obtaining pelvic ultrasound which he politely declines. She would very much like to follow up with development consultant for further workup and treatment. Discharge Plan Departure Patient Disposition: Home Clinical Impression: DUB (dysfunctional uterine bleeding) Instructions: DI for Vaginal Bleeding Activity Restrictions/Additional Instructions: Follow up with Gynecology, contacts included below. Please call tomorrow to set up a follow up appointment. Your hemoglobin is slightly low at 11. I would recommend a multivitamin with iron daily. Please return if you develop fevers, new abdominal back or flank pain, any lightheadedness or passing out, new chest pain or shortness of breath, if you are having increasing bleeding or larger clots if you are going through more than a pad or tampon an hour or any other new or concerning changes. Prescriptions: No Action ibuprofen 800 mg tablet 800 mg PO TIDP PRN (Reason: fever or pain) Qty: 30 0RF prednisone 10 mg tablets,dose pack 10 mg PO PER PKG DIR Qty: 21 0RF amoxicillin-pot clavulanate [Augmentin] 875-125 mg tablet 1 tab PO Q12H Qty: 14 0RF amoxicillin-pot clavulanate [Augmentin] 875-125 mg tablet 1 tab PO BID Qty: 20 0RF ketorolac 10 mg tablet 10 mg PO Q6H PRN (Reason: pain) Qty: 14 0RF gabapentin 300 mg capsule 300 mg PO BEDTIME Qty: 20 0RF amoxicillin-pot clavulanate 875-125 mg tablet 1 tab PO Q12H Qty: 20 0RF hydrocodone-acetaminophen 5-325 mg tablet 1 tab PO Q8H PRN (Reason: pain) Qty: 10 0RF Referrals: Anyi Lucas MD [Physician, SALES AND MARKETING DIRECTOR] Stand Alone Forms: Patient Portal/API
== END 2025-07-19 21:47 | disposition home or self-care (01) ==
PROVIDERS: Emergency Provider Emergency Medicine
DX: N93.8 Other specified abnormal uterine and vaginal bleeding (principal); R00.0 Tachycardia, unspecified
CPT/HCPCS: 80053; 81003; 81015; 81025; 85025; 99282; 99283